=== PATIENT | male | born 1950 | race Caucasian/White ===

== ENCOUNTER 2018-05-18 02:08 | Inpatient (IN) | payer OTHER ==
[~2018-05-18] VITALS: Ht 190.5 cm; Wt 105.0 kg
[~2018-05-18 02:08] MED LIST: ASPIRIN325 M2 PO; CARDURA2 M1 PO; DOCUSATE SODIU100 M3 PO; FLOMAX0.4 M1 PO; HYDROMORPHONE HC2 M1 PO; KETOROLAC TROME10 M1 PO; KRILL OIL500 MG PO; LUTEIN20 M2 PO; MIRALAX119 GM PO
--- NOTE | 2018-05-18 10:37 | Admission Core Measures ---
Acute Coronary Syndrome (CM) ACS Core Measures Acute Coronary Syndrome Diagnosis No Congestive Heart Failure (NEW) CHF Core Measures Congestive Heart Failure Diagnosis No Cerebrovascular Accident CVA Core Measures CVA/TIA Diagnosis No Venous Thromboembolism VTE Core Patricia (View Protocol) VTE Risk Factors Surgery No Mechanical VTE Prophylaxis d/t N/A MechProphylax Ordered No VTE Pharm Prophylaxis d/t NA PharmProphylax ordered Problem List As ranked by this Provider includes Assessment & Plan 1. Unilateral primary osteoarthritis, left knee HOME MEDS Home Med List Doxazosin Mesylate (Cardura) 2 MG TABLET 1 TAB PO QPM PROSTATE (Reported)
[2018-05-18] MEDS ORDERED: ASPIRIN EC325 M2 PO (10:39)
[2018-05-18] MEDS ORDERED: COLACE100 M1 PO (10:39)
[2018-05-18] MEDS ORDERED: PRILOSEC OTC20 M1 PO (10:39)
[2018-05-18] MEDS ORDERED: MIRALAX17 G1 PO (10:39)
[2018-05-18] MEDS ORDERED: MS CONTIN15 M3 PO (10:39)
[2018-05-18] MEDS ORDERED: DILAUDID2 M1 PO (10:39)
--- NOTE | 2018-05-18 10:44 | Patient Discharge Instructions ---
Discharge Instructions General Discharge Information You were seen/treated for: Left knee pain related to unilateral primary osteoarthritis You had these procedures: Left total knee replacement Watch for these problems: Increasing pain despite the use of pain medication Increasing redness, warmth or swelling Drainage of any type from incision Inability to bear weight on operative leg Persistent nausea and vomiting Fever greater than 101.5 degrees Do not soak the wound: Yes No bath, but you may shower: Yes Other wound care: Please keep wound clean and dry. No ointments or lotions of any type on or near incision at any time. No exceptions. Your dressing will be changed by your nurse on the second day after your surgery. Daily dry dressing changes are recommended each day thereafter. Do not soak your wound in a bath or pool at any time until otherwise indicated by your surgeon. You may shower, please dry wound immediately after shower with a clean towel. Special Instructions: Aspirin: You are taking this medication to help prevent blood clot formation. Please take with food to protect your stomach lining. Please take as directed. Constipation: Pain medication can cause constipation. Your surgeon has recommended that you take Colace and miralax each day. You may discontinue this medication if you develop loose stool or diarrhea. If you wish to continue this medication, it is available over the counter. If you are unable to move your bowels after several days, if you are unable to pass gas and are developing bloating, nausea, or vomiting as a result, please contact your doctor. Take Tylenol extra strength, as directed for pain. Do not exceed 4 grams (8 tabs ). Take Ultram for breakthrough pain and Zofran as needed for nausea. Diet Continue normal diet: Yes Recommended Diet: Regular Activity Full Activity/No Limits: No Activity Self Limited: Yes Pounds, do NOT lift more than: 10 Activity Limited to: Weight bear as tolerated Other activity limits: Use rolling walker as needed Acute Coronary Syndrome Inclusion Criteria At DC or during hospital stay patient has or had the following: ACS DIAGNOSIS No Discharge Core Measures Meds if any: Prescribed or Continued at Discharge Meds if any: NOT Prescribed or Continued at Discharge Congestive Heart Failure Inclusion Criteria At DC or during hospital stay patient has or had the following: CHF DIAGNOSIS No Discharge Core Measures Meds if any: Prescribed or Continued at Discharge Meds if any: NOT Prescribed or Continued at Discharge Cerebrovascular accident Inclusion Criteria At DC or during hospital stay patient has or had the following: CVA/TIA Diagnosis No Discharge Core Measures Meds if any: Prescribed or Continued at Discharge Meds if any: NOT Prescribed or Continued at Discharge Venous thromboembolism Inclusion Criteria VTE Diagnosis No VTE Type NONE VTE Confirmed by (Test) NONE Discharge Core Measures - Per Current guidelines, there needs to be overlap - treatment for the first 5 days of Warfarin therapy. - If discharged on Warfarin prior to 5 days of - overlap therapy, the patient will need to be - assessed for post discharge needs including - *Post discharge parental anticoagulation - *Warfarin and/or parental anticoagulation education - *Follow up date to check INR post discharge At least 5 days overlap therapy as Inpatient No Meds if any: Prescribed or Continued at Discharge Note: Overlap Therapy is Warfarin and Anticoagulant Meds if any: NOT Prescribed or Continued at Discharge
--- NOTE | 2018-05-18 10:46 | Surgical Discharge Summary ---
Visit Information Visit Dates Admission Date: 05/18/18 Discharge Date: 05/21/18 History of Present Illness Chief Complaint: Left knee pain related to unilateral primary osteoarthritis Medical History Neurological: NONE EENT: NONE Cardiovascular: NONE Respiratory: NONE Gastrointestinal: NONE Hepatic: NONE Renal: NONE Musculoskeletal: osteoarthritis Psychiatric: NONE Endocrine: NONE Blood Disorders: NONE Cancer(s): NONE LITIGATION MANAGER/Reproductive: NONE History of MRSA: No History of VRE: No History of CDIFF: No Surgical History Pertinent Surgical History: right total knee replacement Psychosocial History Who Do You Live With? Spouse Services at Home: None What is Your Primary Language? German Review of Systems: See H&P Hospital Course Course Attending Physician: Ajay Estrada MD Primary Care Physician: Carlos ARELLANO,[facility] Hospital Course: Patient was admitted to the hospital for an elective total joint replacement. The procedure was tolerated well and patient was transferred to a general surgical floor. Diet was advanced and tolerated. The patient was evaluated and treated by physical therapy. At the time of hospital discharge, the vital signs were stable, neurovascular status was intact, and pain was controlled with the use of oral pain medications. Allergies: Coded Allergies: Iodinated Contrast- Oral and IV Dye (ITCHY 05/15/18) iodine (ITCHY 05/15/18) PER ANTIBIOTIC ORDER SHEET OF 08/31/17 ([facility]) naproxen (From ALEVE) (NAUSEA 05/15/18) PER ANTIBIOTIC ORDER SHEET OF 08/31/17 ([facility]JS) oxycodone (From PERCOCET) (NAUSEA 08/31/17) Disposition Summary Disposition Principal Diagnosis: Left knee unilateral primary osteoarthritis Additional Diagnosis: None Discharge Disposition: home health services Discharge Instructions General Discharge Information Code Status: Full Code Patient's Diet: Regular,advance as tolerated Patient's Activity: WBAT Follow-Up Instructions/Appts: Follow up with Dr. Estrada in 6 weeks from date of surgery. Please call office to arrange &/or confirm this appointment. Medications at Discharge Discharge Medications: Continue taking these medications: Doxazosin Mesylate (Cardura) 2 MG TABLET 1 Tablet ORAL Every night Comments: 4mg given Last Taken:05/19/18 Time:820PM Start taking the following new medications: Acetaminophen (Tylenol Extra Strength) 500 MG TABLET 1-2 Tablet ORAL Every 6-8 Hours as needed for PAIN Qty = 32 No Refills Aspirin (Ecotrin*) 325 MG TABLET.DR 1 Tablet ORAL TWICE DAILY Qty = 60 No Refills Comments: Last Taken:05/20/18 Time:0800AM Docusate Sodium (Colace) 100 MG CAPSULE 1 Capsule ORAL TWICE DAILY Qty = 14 No Refills Instructions: DISCONTINUE USE IF YOU DEVELOP LOOSE STOOL OR DIARRHEA Comments: Last Taken:05/20/18 Time:0800AM Polyethylene Glycol 3350 (Miralax) 17 GRAM POWD.PACK 1 Packet ORAL DAILY Qty = 7 No Refills Instructions: dissolve in water, DISCONTINUE USE IF YOU DEVELOP LOOSE STOOL OR DIARRHEA Comments: Last Taken:05/20/18 Time:0800AM Omeprazole Magnesium (Prilosec Otc) 20 MG TABLET.DR 2 Tablet ORAL DAILY Qty = 60 No Refills Comments: Last Taken:05/20/18 Time:0641AM Tramadol HCl (Ultram) 50 MG TABLET 1-2 Tablet ORAL Every 6-8 Hours as needed for PAIN Qty = 32 No Refills Ondansetron (Zofran Odt) 4 MG TAB.RAPDIS 1 Tablet SUBLINGUAL THREE TIMES DAILY as needed for NAUSEA Qty = 9 No Refills
[2018-05-18 12:45] VITALS: BP 118/80
--- NOTE | 2018-05-18 13:33 | PN- Orthopedic ---
Subjective Subjective: POST-OP NOTE Reports some pain starting with his knee. Not yet out of bed. Denies dizziness. No shortness of breath. No chest pains. Nausea from earlier has resolved. Reports issues with voiding last august post-op from his previous knee replacement, which resulted in multiple straight caths and an ER visit after he was discharged due to urinary retention. He is due to void later this afternoon. Objective Vital Signs and I&Os Vital Signs Date Time Temp Pulse Resp B/P B/P Pulse O2 O2 Flow FiO2 Mean Ox Delivery Rate 05/18 1245 94.2 51 18 118/80 93 Room Air Intake & Output 05/18 1600 05/18 0800 05/18 0000 05/17 1600 05/17 0800 05/17 0000 Intake Total Output Total Balance Patient 239 lb Weight Physical Exam: General - alert & oriented x 3. comfortable. no acute distress. Lungs - clear bilaterally. no w/r/r. Cardiac - s1s2. reg. Abdomen - soft. nontender. Extremities - warm bilaterally. no c/c/e. left knee dressing c/d/i. ice pack in place over knee. no drains noted. nvi. calves nontender. Current Medications: Current Medications Sig/Shay Start time Last Medication Dose Route Stop Time Status Admin Acetaminophen 1,000 MG Q6 05/18 1200 AC 05/18 IV 05/19 0601 1335 Acetaminophen 0 .STK-MED ONE 05/18 0733 DC PO Acetaminophen 975 MG ONCE 05/18 0000 DC PO 05/18 2359 Aspirin 325 MG BID 05/18 2100 AC PO Cefazolin Sodium 2 GM IQ8 05/18 1600 AC N/A 1 UNIT IV 05/19 0029 Cefazolin Sodium 2,000 MG ONCE 05/18 0000 DC IV 05/18 2359 Dextrose/Sodium 1,000 ML .[id number] 05/18 1245 AC Chloride IV Docusate Sodium 100 MG BID 05/18 2100 AC PO Doxazosin Mesylate 2 MG QPM 05/18 2100 AC PO Hydromorphone HCl 2 MG Q4P PRN 05/18 1245 AC 05/18 PO 1333 Hydromorphone HCl 4 MG Q4P PRN 05/18 1245 AC PO Morphine Sulfate 2 MG Q2P PRN 05/18 1245 AC IV Omeprazole 40 MG DAILY AC 05/19 0700 AC PO Ondansetron HCl 4 MG Q6P PRN 05/18 1245 AC IV Oxycodone HCl 0 .STK-MED ONE 05/18 0732 DC PO Oxycodone HCl 10 MG ONCE 05/18 0000 DC PO 05/18 2359 Polyethylene Glycol 17 GM DAILY 05/19 0900 AC PO Promethazine HCl 12.5 MG Q6P PRN 05/18 1245 AC IV 05/25 1014 Assessment/Plan Assessment/Plan This 68 year old male with hx bph is POD#0 s/p left total knee replacement for primary osteoarthritis, with hx urinary retention post-op from his other knee replacement requiring straight caths and jung catheter post-discharge advance diet as tolerated pain control as ordered asa bid - dvt ppx ancef x 2 doses post-op due to void this afternoon PT eval dressing change POD#2 d/c planning will d/w Core Measures Venous Thromboembolism VTE Risk Factors Surgery No Mechanical VTE Prophylaxis d/t N/A MechProphylax Ordered No VTE Pharm Prophylaxis d/t NA PharmProphylax ordered
[2018-05-18 14:18] VITALS: BP 110/80
--- NOTE | 2018-05-18 14:51 | Operative Report ---
Operative/Inv Procedure Report Surgery Date: 05/18/18 Name of Procedure: Left total knee replacement Pre-Operative Diagnosis: Primary left knee DJD Post-Operative Diagnosis: Same Estimated Blood Loss: 50ml to 100ml Surgeon/Resident Assistant Cna: Sean ARELLANO,Ajay Akins Anesthesia: block Operative/Procedure Note Note: Description of Procedure: The patient was taken to the operating room and positively identified. After induction of spinal anesthesia and administration of appropriate pre-operative antibiotics, the patient was positioned supine on the operating room table and all bony prominences were well padded. A well-padded pneumatic tourniquet was placed on the left upper thigh. After performing a surgical timeout, the left lower extremity was prepped and draped in the usual sterile fashion. After exsanguination with Esmarch the tourniquet was inflated to 250mm of mercury. A standard medial parapatellar approach was made to the knee. This was carried down through skin and subcutaneous tissue to the level of the fascia. Meticulous hemostasis was maintained with Bovie electrocautery. The extensor mechanism and patellar retinaculum were opened sharply and the patella was everted. The infrapatellar fat was resected in order to improve exposure. Osteophytes were trimmed from the patella and femoral condyles and the patella was re-everted and tucked laterally. A medial release was performed and the cruciate ligaments were resected. The tibia was then subluxed anteriorly. Utilizing the appropriate extra-medullary guide, the proximal tibia was trimmed perpendicular to the long axis of the tibial shaft. Attention was then turned to the femur. After opening the medullary canal, the distal femoral cut was made in 6 degrees of valgus utilizing the appropriate intra-medullary guide. The extension gap was checked and found to be appropriate. The femur was then sized and the remainder of the femoral cuts were made with a size 6 4-in-1 femoral cutting guide. The flexion gap was checked and found to be symmetric and appropriate. The knee was then trialed with a size 6 femoral component, a size 6 tibial component and a size 11 mm TS polyethylene insert. The patella was trimmed to accept an A 35 patella. This yielded excellent range of motion, stability and patellar tracking. All trial components were removed and the knee was copiously irrigated with sterile saline. All components were cemented into place with Jaret Simplex cement. All the components were of the Alpha Triathlon knee system of the above stated sizes. The knee was again irrigated after cementation. The extensor mechanism and patellar retinaculum were repaired using interrupted #1 vicryl suture. The skin was re-approximated with 2-0 vicryl and closed with alex. A sterile dressing was applied, the tourniquet was deflated, the patient was awakened and taken to the recovery room in satisfactory condition.
[2018-05-18 16:30] VITALS: BP 120/70
[2018-05-18 18:37] VITALS: BP 122/70
[2018-05-18 22:28] VITALS: BP 114/60
[2018-05-19 01:58] VITALS: BP 118/66
[2018-05-19 06:29] VITALS: BP 118/72
[2018-05-19 08:07] LABS: ABSOLUTE BASOPHIL COUNT 0 /CUMM (0.0-0.2); ABSOLUTE EOSINOPHIL COUNT 0.2 /CUMM (0.0-0.7); ABSOLUTE GRANULOCYTE CT 9.5 /CUMM (1.4-6.5); ABSOLUTE LYMPH COUNT 2.2 /CUMM (1.2-3.4); ABSOLUTE MONOCYTE COUNT 1.4 /CUMM (0.10-0.60); BASOPHIL % 0.2 % (0.0-2.0); EOSINOPHIL % 1.5 % (0-5); GRANULOCYTE % 71.2 % (42.2-75.2); HEMATOCRIT 39.4 % (42-52); MEAN CORPUSCULAR HGB 32.7 PG (27.0-31.0); MEAN CORPUSCULAR HGB CONC 34.1 G/DL (33.0-37.0); MEAN CORPUSCULAR VOLUME 95.7 FL (80.0-94.0); MEAN PLATELET VOLUME 8.9 FL (7.4-10.4); PLATELET COUNT 187 /CUMM (130-400); RED BLOOD CELL CT 4.12 /CUMM (4.70-6.10); WHITE BLOOD CELL COUNT 13.3 /CUMM (4.8-10.8)
[2018-05-19 09:48] VITALS: BP 100/60
--- NOTE | 2018-05-19 10:01 | PN- Orthopedic ---
Subjective Subjective: pt in bed, pain at 5/10 and tolerable. Had some mild nausea with PT yesterday. Tolerating diet, no nausea since yesterday. voiding well. Denies paresthesias Denies Cp/sob and NOVOA Objective Vital Signs and I&Os Vital Signs Date Time Temp Pulse Resp B/P B/P Pulse O2 O2 Flow FiO2 Mean Ox Delivery Rate 05/19 0948 97.8 60 20 100/60 93 Room Air 05/19 0629 97.7 61 20 118/72 95 05/19 0158 97.9 61 20 118/66 96 05/18 2352 4.0 05/18 2228 97.7 80 18 114/60 94 05/18 1837 98.0 76 18 122/70 93 Room Air 05/18 1630 97.8 81 18 120/70 94 Room Air 05/18 1418 97.4 84 18 110/80 18 05/18 1245 94.2 51 18 118/80 93 Room Air 05/18 1210 Room Air Intake & Output 05/19 1600 05/19 0800 05/19 0000 05/18 1600 05/18 0800 05/18 0000 Intake Total 720 1600 470 Output Total 350 700 0 Balance 370 900 470 Intake, IV 600 800 150 Intake, Oral 120 800 320 Output, Urine 350 700 0 Patient 232 lb Weight Weight Bed scale Measurement Method Physical Exam: gen- NAD resp- clear cardiac- RRR abd- soft, NT ext- left leg wrapped in ilia bandage, clean and dry. thigh is tender, no calf tenderness. distal sensoery and motor function intact Current Medications: Current Medications Sig/Shay Start time Last Medication Dose Route Stop Time Status Admin Acetaminophen 1,000 MG Q6 05/18 1200 DC 05/19 IV 05/19 0601 0538 Acetaminophen 975 MG ONCE 05/18 0000 DC PO 05/18 2359 Aspirin 325 MG BID 05/18 2100 AC 05/18 PO 1951 Cefazolin Sodium 2 GM IQ8 05/18 1600 DC 05/18 N/A 1 UNIT IV 05/19 0029 235 Cefazolin Sodium 2,000 MG ONCE 05/18 0000 DC IV 05/18 2359 Dextrose/Sodium 1,000 ML .[id number] 05/18 1245 DC 05/18 Chloride IV 235 Docusate Sodium 100 MG BID 05/18 2100 AC 05/18 PO 1951 Doxazosin Mesylate 2 MG QPM 05/18 2100 DC PO Doxazosin Mesylate 4 MG QPM 05/18 2100 AC 05/18 PO 195 Haloperidol 5 MG .STK-MED ONE 05/18 1140 DC IM 05/18 1141 Hydromorphone HCl 2 MG Q4P PRN 05/18 1245 AC 05/19 PO 0755 Hydromorphone HCl 4 MG Q4P PRN 05/18 1245 AC 05/19 PO 0407 Ketorolac 15 MG Q8P PRN 05/18 1345 AC 05/19 Tromethamine IV 0003 Morphine Sulfate 2 MG Q2P PRN 05/18 1245 AC 05/18 IV 2202 Omeprazole 40 MG DAILY AC 05/19 0700 AC 05/19 PO 0538 Ondansetron HCl 4 MG Q6P PRN 05/18 1245 AC 05/19 IV 0840 Oxycodone HCl 10 MG ONCE 05/18 0000 DC PO 05/18 2359 Polyethylene Glycol 17 GM DAILY 05/19 0900 AC PO Promethazine HCl 12.5 MG Q6P PRN 05/18 1245 AC IV 05/25 1014 Results Last 48 Hours of Labs: Laboratory Tests 05/19 06 Chemistry Sodium (137 - 145 mmol/L) 137 Potassium (3.5 - 5.1 mmol/L) 3.9 Chloride (98 - 107 mmol/L) 102 Carbon Dioxide (22 - 30 mmol/L) 25 Anion Gap (5 - 16) 11 BUN (9 - 20 mg/dL) 15 Creatinine (0.7 - 1.2 mg/dL) 0.9 Estimated GFR (>60 ml/min) > 60 BUN/Creatinine Ratio (7 - 25 %) 16.7 Hematology CBC w Diff NO MAN DIFF REQ WBC (4.8 - 10.8 /CUMM) 13.3 H RBC (4.70 - 6.10 /CUMM) 4.12 L Hgb (14.0 - 18.0 G/DL) 13.5 L Hct (42 - 52 %) 39.4 L MCV (80.0 - 94.0 FL) 95.7 H MCH (27.0 - 31.0 PG) 32.7 H MCHC (33.0 - 37.0 G/DL) 34.1 RDW (11.5 - 14.5 %) 13.0 Plt Count (130 - 400 /CUMM) 187 MPV (7.4 - 10.4 FL) 8.9 Gran % (42.2 - 75.2 %) 71.2 Lymphocytes % (20.5 - 51.1 %) 16.6 L Monocytes % (1.7 - 9.3 %) 10.5 H Eosinophils % (0 - 5 %) 1.5 Basophils % (0.0 - 2.0 %) 0.2 Absolute Granulocytes (1.4 - 6.5 /CUMM) 9.5 H Absolute Lymphocytes (1.2 - 3.4 /CUMM) 2.2 Absolute Monocytes (0.10 - 0.60 /CUMM) 1.4 H Absolute Eosinophils (0.0 - 0.7 /CUMM) 0.2 Absolute Basophils (0.0 - 0.2 /CUMM) 0 Assessment/Plan Assessment/Plan This 68 year old male with hx bph is POD#1 s/p L TKA POD1. stable. voiding without difficulty regular diet pain control as ordered asa bid - dvt ppx PT - WBAT w RW regular home meds dressing change POD#2 d/c planning will d/w Core Measures Venous Thromboembolism VTE Risk Factors Surgery No Mechanical VTE Prophylaxis d/t N/A MechProphylax Ordered No VTE Pharm Prophylaxis d/t NA PharmProphylax ordered
[2018-05-19 13:49] VITALS: BP 112/70
[2018-05-19 22:03] VITALS: BP 102/60
[2018-05-20 07:01] VITALS: BP 100/58
[2018-05-20] MEDS ORDERED: HYDROCODON-ACE1 EAC2 PO (07:56)
--- NOTE | 2018-05-20 08:34 | PN- Orthopedic ---
See Addendum Subjective Subjective: No events overnight. Patient states pain well controlled today on Vicodin. Per patient Dilaudid made him nauseous. No nausea with Vicodin. Denies any numbness, tingling, or shooting pains. Tolerating diet without issue. Voiding freely. Working with PT, cleared for home PT yesterday. Patient states he wants to go home today. Objective Vital Signs and I&Os Vital Signs Date Time Temp Pulse Resp B/P B/P Pulse O2 O2 Flow FiO2 Mean Ox Delivery Rate 05/20 0701 98.0 64 18 100/58 93 Room Air 05/19 2203 98.4 70 18 102/60 93 05/19 1349 97.5 68 20 112/70 94 Room Air 05/19 0948 97.8 60 20 100/60 93 Room Air Intake & Output 05/20 1600 05/20 0800 05/20 0000 05/19 1600 05/19 0800 05/19 0000 Intake Total 260 260 401 649 6058 Output Total 450 350 700 Balance -190 260 320 370 900 Intake, IV 20 20 600 800 Intake, Oral 240 240 320 120 800 Output, Urine 450 350 700 Physical Exam: Afebrile, VSS. Cardiac: RRR Pulmonary: CTAB LLE: Dressing c/d/i. Dressing taken down, incision c/d/i, alex in place. No drainage noted. No hematoma appreciated. Able to wiggle toes. Motor and sensation grossly intact. Foot warm, + DP pulse. Calf soft, non tender. Assessment/Plan Assessment/Plan This 68 year old male with hx bph is POD#2 s/p L TKA. Stable. Tolerating diet, pain controlled with Vicodin, ambulating with PT. Voiding without difficulty. - Continue regular diet - PO pain control prn - WBAT to RLE - Continue home medications - DVT ppx - ASA BID - Plan for d/c today with home PT - will d/w Core Measures Venous Thromboembolism VTE Risk Factors Surgery No Mechanical VTE Prophylaxis d/t N/A MechProphylax Ordered No VTE Pharm Prophylaxis d/t NA PharmProphylax ordered
[2018-05-20 13:43] VITALS: BP 118/70
[2018-05-20 22:22] VITALS: BP 120/60
[2018-05-21 06:20] VITALS: BP 134/62
--- NOTE | 2018-05-21 10:08 | PN- Orthopedic ---
Subjective Subjective: Patient reports postop pain, which is controlled with IV toradol and tylenol. He reports dilaudid, percocet and vicodin have all made him nauseous. He is ambualting with PT, cleared for d/c. Tolerating a diet. Offers no complaints. Objective Vital Signs and I&Os Vital Signs Date Time Temp Pulse Resp B/P B/P Pulse O2 O2 Flow FiO2 Mean Ox Delivery Rate 05/21 06 97.9 73 18 134/62 92 Room Air 05/20 2222 99.2 92 20 120/60 92 Room Air 05/20 1343 97.9 76 20 118/70 98 Room Air Intake & Output 05/21 1600 05/21 0800 05/21 0000 05/20 1600 05/20 0800 05/20 0000 Intake Total 360 360 800 260 260 Output Total 600 450 Balance -240 360 800 -190 260 Intake, IV 20 20 Intake, Oral 360 360 800 240 240 Output, Urine 600 450 Physical Exam: Gen - nad Cardiac - S1S2 noted Lungs - CTAB Ext - L knee dressing c/d/i, incision closed with alex, no signs of infection , mild swelling, motor and sensory intact, appropriately tender, compartment soft, teds in place, no edema or calf pain Current Medications: Current Medications Sig/Shay Start time Last Medication Dose Route Stop Time Status Admin Acetaminophen 500 MG Q6P PRN 05/21 0930 AC 05/21 PO 0936 Acetaminophen 1,000 MG Q6-PRN PRN 05/21 0930 AC PO Acetaminophen 1,000 MG Q6P PRN 05/20 2300 DC 05/20 N/A 1 UNIT IV 2315 Aspirin 325 MG BID 05/18 PO 24 Calcium Carbonate 1,000 MG Q6-PRN PRN 05/19 2130 AC 05/19 PO 2156 Docusate Sodium 100 MG BID 05/20 1300 CAN PO Docusate Sodium 100 MG BID 05/18 2100 05/21 PO 0924 Doxazosin Mesylate 4 MG QPM 05/18 2100 AC 05/20 PO 2034 Hydrocodone Bitart/ 1 TAB Q4P PRN 05/19 1015 DC 05/20 Acetaminophen PO 0809 Hydrocodone Bitart/ 2 TAB Q4P PRN 05/19 1015 DC Acetaminophen PO Ketorolac 15 MG Q8P PRN 05/20 2300 AC Tromethamine IV Ketorolac 15 MG Q8P PRN 05/18 1345 AC 05/21 Tromethamine IV 0136 Morphine Sulfate 15 MG BID 05/20 1018 AC PO Morphine Sulfate 2 MG Q2P PRN 05/18 1245 DC 05/18 IV 2202 Omeprazole 40 MG DAILY AC 05/19 0700 AC 05/21 PO 0612 Ondansetron HCl 4 MG Q6-PRN PRN 05/21 0930 AC PO Ondansetron HCl 4 MG Q6P PRN 05/18 1245 AC 05/20 IV 1715 Patient Medication 1 ED ONE ONE 05/20 1445 DC 05/20 Teaching ED 05/20 1446 1604 Polyethylene Glycol 17 GM DAILY 05/19 0900 AC 05/21 PO 0924 Promethazine HCl 12.5 MG Q6P PRN 05/18 1245 AC IV 05/25 1014 Senna 187 MG AT BEDTIME 05/20 2100 AC 05/20 PO 2034 Tramadol HCl 50 MG Q4-6 PRN PRN 05/21 0930 AC PO Tramadol HCl 100 MG Q4-6 PRN PRN 05/21 0930 AC PO Assessment/Plan Assessment/Plan 68 M POD 3 s/p L TKA recovering well, stable for discharge, cleared by PT Continue current care Pain regimen - d/c IV Tylenol and Toradol Start oral Tylenol ES and Ultram with oral Zofran for nausea OOB w/ PT, WBAT Home meds on board DVT ppx - asa 325 bid, teds, alps GI ppx on board Dry dessing change daily D/c home w/ [facility] today D/w Core Measures Venous Thromboembolism VTE Risk Factors Surgery No Mechanical VTE Prophylaxis d/t N/A MechProphylax Ordered No VTE Pharm Prophylaxis d/t NA PharmProphylax ordered
[2018-05-21] MEDS ORDERED: TYLENOL EXTRA500 M2 PO ×3 (10:29→11:27)
[2018-05-21] MEDS ORDERED: ULTRAM50 M1 PO ×2 (10:29→11:26)
[2018-05-21] MEDS ORDERED: ZOFRAN ODT4 M1 SL ×2 (10:29→11:27)
== END 2018-05-21 12:15 | disposition home health service (06) | DRG 470 ==
LOC: SDA 02:08 → ENRESERV 10:53 → ENTRNSPT 11:34 → EDTRNSPTSTS 11:36 → EDTRNSPT 11:36 → CMPTRNSPT 12:09 → 2NA 12:10 → ENPENDDIS 05-20 10:01 → ENTRNSPT 05-21 11:39 → 2NA 05-21 12:15 → CMPTRNSPT 05-21 12:40
PROVIDERS: Nurse Practitioner
PROC: 3E0T3BZ Introduction of Anesthetic Agent into Peripheral Nerves and Plexi, Percutaneous Approach (ICD-10-PCS; principal; 2018-05-18)
PROC: 0SRD0J9 Replacement of Left Knee Joint with Synthetic Substitute, Cemented, Open Approach (ICD-10-PCS; principal; 2018-05-18)
DX: M17.12 Unilateral primary osteoarthritis, left knee (principal); Z88.5 Allergy status to narcotic agent; Z88.6 Allergy status to analgesic agent; Z91.041 Radiographic dye allergy status; K21.9 Gastro-esophageal reflux disease without esophagitis; N40.1 Benign prostatic hyperplasia with lower urinary tract symptoms; R33.8 Other retention of urine; Z96.651 Presence of right artificial knee joint; I45.10 Unspecified right bundle-branch block
CPT/HCPCS: 2NAP; 36592; 82436; 88305; 97110-GO; 97116-GO; 97161-GP; 97530-GO; C1713; J0131; J0690; J1100; J1630; J2405; J2550; J3101; J7042